=== PATIENT | male | born 1950 | race Caucasian/White ===

== ENCOUNTER 2017-02-06 12:04 | Day surgery (SDC) | payer MEDICARE, SELFPAY ==
[~2017-02-06] VITALS: Ht 177.8 cm; Wt 90.7 kg
[~2017-02-06 12:04] MED LIST: Carbidopa-Levo1 EAC2 PO; GABA300 PO; HYDR1TAB94 PO; Hair, Skin & N1 EACH PO; IBUP800 PO
[2017-02-06] MEDS ORDERED: PROP60 PO (13:00)
[2017-02-06] MEDS ORDERED: Aspir-Trin325 MG PO (13:01)
--- NOTE | 2017-02-06 16:47 | NUR ---
02/06/17 8507 Keely Cruz PT IS NOW UP IN THE CHAIR. PT'S VSS. RN IS TREATING PAIN PER DR'S ORDERS. PT REFUSES PO FLUIDS AT THIS TIME. PT ALSO REFUSES FAMILY AT THIS TIME. WARM BLANKET HAS BEEN APPLIED. LEG IS ELEVATED ON A PILLOW. CALL LIGHT IS IN REACH.
== END 2017-02-06 18:37 | disposition home or self-care (01) ==
LOC: ORSCSDS 12:04
PROVIDERS: Orthopaedic Surgery
PROC: 0QSK04Z Reposition Left Fibula with Internal Fixation Device, Open Approach (ICD-10-PCS; principal; 2017-02-06 13:15)
PROC: 0SSG04Z Reposition Left Ankle Joint with Internal Fixation Device, Open Approach (ICD-10-PCS; principal; 2017-02-06 13:15)
PROC: 0QSH04Z Reposition Left Tibia with Internal Fixation Device, Open Approach (ICD-10-PCS; principal; 2017-02-06 13:15)
DX: S82.852A Displaced trimalleolar fracture of left lower leg, initial encounter for closed fracture (principal); S93.432A Sprain of tibiofibular ligament of left ankle, initial encounter; G20 Parkinson's disease; F17.210 Nicotine dependence, cigarettes, uncomplicated; Z79.899 Other long term (current) drug therapy
CPT/HCPCS: C1713; C1769; J0690; J2250; J2405; J3010; J7120